=== PATIENT | female | born 1950 | race Caucasian/White ===

== ENCOUNTER 2018-05-19 08:20 | Emergency (ER) | payer MEDICARE, OTHER ==
[~2018-05-19] VITALS: Ht 163.8 cm; Wt 110.0 kg
[~2018-05-19 08:20] MED LIST: ASPIRIN EC81 MG PO; ATORVASTATIN CA40 MG PO; CARAFATE1 GM PO; CELEBREX100 M1 PO; CEPHALEXIN500 MG PO; DIAZEPAM5 MG PO; FLUOXETINE10 M2 PO; LEVOTHYROXIN100 MCG PO; LORAZEPAM0.5 MG PO; METOPROL TAR25 MG PO; PREDNISONE20 MG PO; PRILOSEC20 MG PO; SEROQUEL25 MG PO; SYNTHROID100 MCG PO; TYLENOL # 31 TA1 PO; XOPENEX0.31 MG IN; ZITHROMAX500 MG PO
[2018-05-19 09:02] LABS: HEMATOCRIT 41.4 % (37.0-47.0); HEMOGLOBIN 13.7 g/dl (12.0-16.0); IMMATURE GRANULOCYTES 0.5 % (0.0-5.0); MEAN CORPUSCULAR HGB 30.4 pG CALC (26.0-32.0); MEAN CORPUSCULAR HGB CONC 33.1 g/L CALC (32.0-36.0); NEUT# 5.25 thou/uL (2.00-7.15); RED BLOOD COUNT 4.5 mill/uL (4.20-5.60); RED CELL DISTRI WIDTH 13.2 % (11.5-15.5)
[2018-05-19 09:12] LABS: ALBUMIN 4.3 g/dL (3.2-5.0); ALKALINE PHOSPHATASE 110 u/l (38-126); ANION GAP 14 (6-22 (CALC)); BILIRUBIN, TOTAL 0.6 mg/dL (0.0-1.4); BUN 19 mg/dL (8-23); BUN/CREATININE RATIO 26 (12-20 (CALC)); CARBON DIOXIDE 27 mmol/l (22-30); CHLORIDE 105 mmol/l (95-108); CREATININE 0.7 mg/dL (0.5-1.0); GFR > 60 ML/MIN (>=60 (CALC)); GFR FOR AFR.AMER. > 60 ML/MIN (>=60 (CALC)); POTASSIUM 4.7 mmol/l (3.5-5.1); SGOT/AST 24 u/l (9-36); SODIUM 141 mmol/l (137-146)
[2018-05-19 09:47] LABS: TSH, 3RD GENERATION 5.32 uIU/mL (0.47 - 4.68)
[2018-05-19] MEDS ORDERED: ASPIRIN81 MG PO (10:15)
[2018-05-19] MEDS ORDERED: LOSARTAN POT25 MG PO (10:17)
[2018-05-19] MEDS ORDERED: VITAMIN D-32000 UNI1 PO (10:18)
[2018-05-19] MEDS ORDERED: DIAZEPAM5 MG PO (10:20)
[2018-05-19 11:15] LABS: URINE BILIRUBIN - DIPSTICK NEGATIVE (NEGATIVE); URINE BLOOD DIPSTICK NEGATIVE (NEGATIVE); URINE COLOR YELLOW; URINE GLUCOSE - DIPSTICK NEGATIVE (NEGATIVE); URINE KETONE NEGATIVE (NEGATIVE); URINE LEUK ESTERASE NEGATIVE (NEGATIVE); URINE NITRITE - DIPSTICK NEGATIVE (Negative); URINE PH 6.5 (4.5-8.0); URINE PROTEIN - DIPSTICK NEGATIVE (NEG-TRACE); URINE SPECIFIC GRAVITY <=1.005; URINE UROBILINOGEN - DIPSTICK 0.2 E.U./dL (0.2)
[2018-05-19] MEDS ORDERED: ANTIVERT PO (11:22)
[2018-05-19] MEDS ORDERED: CIPROFLOXACN500 MG PO (11:22)
[2018-05-19] MEDS ORDERED: CORTISPORIN OTI10 M2 AS (11:22)
[2018-05-19 12:12] VITALS: BP 139/63
== END 2018-05-19 12:24 | disposition home or self-care (01) ==
LOC: ED 08:20
PROVIDERS: Emergency Medicine
DX: R42 Dizziness and giddiness (principal); H66.92 Otitis media, unspecified, left ear; H60.92 Unspecified otitis externa, left ear; I10 Essential (primary) hypertension; J44.9 Chronic obstructive pulmonary disease, unspecified
CPT/HCPCS: Q9967

== ENCOUNTER 2019-04-09 | Emergency (ER) | payer MEDICARE, OTHER ==
[~2019-04-09] MED LIST changes: +ANTIVERT PO; +ASPIRIN81 MG PO; +CIPROFLOXACN500 MG PO; +CORTISPORIN OTI10 M2 AS; +LOSARTAN POT25 MG PO; +VITAMIN D-32000 UNI1 PO
[2019-04-09 01:54] LABS: HEMATOCRIT 39.1 % (37.0-47.0); HEMOGLOBIN 13.2 g/dl (12.0-16.0); IMMATURE GRANULOCYTES 0.3 % (0.0-5.0); MEAN CELL VOLUME 92.7 fL CALC (80.0-100.0); MEAN CORPUSCULAR HGB 31.3 pG CALC (26.0-32.0); MEAN CORPUSCULAR HGB CONC 33.8 g/L CALC (32.0-36.0); NEUT# 2.98 thou/uL (2.00-7.15); RED BLOOD COUNT 4.22 mill/uL (4.20-5.60)
[2019-04-09 02:07] LABS: ALBUMIN 4.3 g/dL (3.2-5.0); ALKALINE PHOSPHATASE 94 u/l (38-126); BILIRUBIN, TOTAL 0.8 mg/dL (0.0-1.4); BUN 17 mg/dL (8-23); BUN/CREATININE RATIO 22 (12-20 (CALC)); CARBON DIOXIDE 28 mmol/l (22-30); CHLORIDE 104 mmol/l (95-108); CREATININE 0.8 mg/dL (0.5-1.0); GFR > 60 ML/MIN (>=60 (CALC)); GFR FOR AFR.AMER. > 60 ML/MIN (>=60 (CALC)); SGOT/AST 28 u/l (9-36); SODIUM 139 mmol/l (137-146); TOTAL PROTEIN 7.1 g/dL (6.3-8.2)
[2019-04-09] MEDS ORDERED: MELOXICAM7.5 MG PO (02:08)
[2019-04-09 02:20] LABS: ANION GAP 11 (6-22 (CALC)); POTASSIUM 4.4 mmol/l (3.5-5.1)
[2019-04-09] MEDS ORDERED: DOXYCYC MONO100 M2 PO (02:37)
[2019-04-09] MEDS ORDERED: NEOSPORI2 EX (02:37)
[2019-04-09] MEDS ORDERED: ULTRAM50 M1 PO (02:38)
[2019-04-09] MEDS ORDERED: MEDDOSEPAK PO (06:34)
== END 2019-04-09 04:20 | disposition home or self-care (01) ==
PROVIDERS: Emergency Medicine
DX: M72.2 Plantar fascial fibromatosis (principal); R23.8 Other skin changes; L08.9 Local infection of the skin and subcutaneous tissue, unspecified; M47.816 Spondylosis without myelopathy or radiculopathy, lumbar region; M41.56 Other secondary scoliosis, lumbar region; J44.9 Chronic obstructive pulmonary disease, unspecified; I10 Essential (primary) hypertension